=== PATIENT | female | born 1985 | race Caucasian/White ===

== ENCOUNTER 2016-09-07 16:19 | Emergency (ER) | payer BC ==
--- NOTE | 2016-09-12 23:43 | ER ---
ADMIT: 09/07/2016 RM/LOC: ER [facility] MR#: [id number] [address] [id number] GIANNI GREEN [address] [place] [address] Emergency Room Report SEX: F AGE: 30 : 1985 DATE: 09/07/2016 ADDENDUM: This patient comes to the ER because she has had severe abdominal pain for the last 2 weeks. She has not been able to eat and has had vomiting on and off. She has had her gallbladder out. The pain is in her epigastric area and seems to go into her back. She has had gastric bypass surgery and exploratory laparotomy in the past. On physical exam, she has diffuse abdominal tenderness, but most of it seems to be in the epigastric area. No rebound tenderness or guarding. CBC, CMP, and lipase were normal. CAT scan of her abdomen was negative. DIAGNOSIS: Abdominal pain. DISCUSSION: I wrote a prescription for Carafate, omeprazole, Zofran, and Belden. She is to follow up with a surgeon for a possible endoscopy. Please see my T-sheet. LORI Malin / Demarcus Cortez MD / isidro JOB #: [id number] CC: Demarcus Cortez MD, Attending Physician Matt Gonsales MD, Family Physician
== END 2016-09-07 20:00 | disposition home or self-care (01) ==
LOC: ER 16:19
DX: R10.13 Epigastric pain (principal); Z90.49 Acquired absence of other specified parts of digestive tract; Z88.8 Allergy status to other drugs, medicaments and biological substances